=== PATIENT | female | born 1995 | race Caucasian/White ===

== ENCOUNTER 2025-09-13 20:32 | Emergency (ER) | payer SELFPAY ==
[~2025-09-13] VITALS: Ht 165.1 cm; Wt 72.7 kg
[2025-09-13 20:41] VITALS: TEMP 98.6
[2025-09-13 20:56] LABS: COVID AG,FIA SOURCE NASAL SWAB
[2025-09-13 21:13] LABS: SARS-COV2 (COVID) ANTIGEN,FIA Negative (Negative)
[2025-09-13 22:38] LABS: PLATELET COUNT (AUTO) 371 K/uL (150-450); RED BLOOD CELL COUNT(AUTO) 4.50 MIL/uL (4.00-5.20); RED CELL DISTRIBUTION WIDTH 13.0 % (11.5-14.5); WHITE BLOOD COUNT (AUTO) 10.2 K/uL (4.5-11.0)
[2025-09-13 22:46] LABS: CALCIUM, TOTAL 9.1 mg/dL (8.8-10.5); CREATININE 0.61 mg/dL (0.60-1.30); GLOMERULAR FILTR. RATE CALC > 60 mL/min (>60); GLUCOSE,RANDOM 91 mg/dL (70-110); SODIUM SERUM 143 mmol/L (136-145); UREA NITROGEN, BLOOD 12 mg/dL (7-18)
[2025-09-14] VITALS: BP 122/89; PULSE 85; RESP 18; O2SAT 98
== END 2025-09-14 00:31 | disposition home or self-care (01) ==
LOC: EMS 20:32 → EDBD 20:32 → EMS 09-14 00:31
DX: S91.311A Laceration without foreign body, right foot, initial encounter (principal); F10.129 Alcohol abuse with intoxication, unspecified; F17.210 Nicotine dependence, cigarettes, uncomplicated; Z20.822 Contact with and (suspected) exposure to COVID-19; Z79.899 Other long term (current) drug therapy; Y90.9 Presence of alcohol in blood, level not specified
CPT/HCPCS: 99285; 87426; 80048; 85025; 36415; G0480